=== PATIENT | male | born 1955 | race Caucasian/White ===

== ENCOUNTER → 2020-05-19 | Outpatient (CLI) | payer OTHER | LOC: M.LAB 08:06 | PROVIDERS: ATTEND Internal Medicine Gastroenterology | DX: Z01.812 Encounter for preprocedural laboratory examination (principal); Z11.59 Encounter for screening for other viral diseases; Z12.11 Encounter for screening for malignant neoplasm of colon ==

== ENCOUNTER 2021-05-12 10:52 | Observation (INO) | payer OTHER ==
[~2021-05-12] VITALS: Ht 175.3 cm; Wt 79.4 kg
[2021-05-12 10:59] VITALS: BP 149/110; BP 194/112
[2021-05-12] MEDS ORDERED: AMARYL4 MG PO (11:01)
[2021-05-12] MEDS ORDERED: METFORMIN HCL500 M3 PO (11:01)
[2021-05-12] MEDS ORDERED: LISINOPRIL20 MG PO (11:01)
[2021-05-12 11:33] LABS: ABSOLUTE EOSINOPHILS 0.2 thou/uL (0.0-0.7); ABSOLUTE MONOCYTES 0.5 thou/uL (0.0-1.2); ABSOLUTE NEUTROPHILS 2.7 thou/uL (1.6-8.1); BASOPHILS 0.8 %; EOSINOPHILS 3.2 %; HEMATOCRIT 46.6 % (42.0-52.0); HEMOGLOBIN 15.8 gm/dL (14.0-18.0); MCH 31.4 pg (26.0-34.0); MCHC 33.9 g/dL (28.0-37.0); MCV 92.6 fL (80.0-100.0); MONOCYTES 9.9 %; MPV 7.2 fl. (7.2-11.1); NUCLEATED RBCS 0 /100WBC; PLATELET COUNT* 278 thou/uL (150-400); POLYS 49.1 %; RBC 5.04 mil/uL (4.50-6.00); RDW-CV 13.6 % (10.5-14.5); WBC 5.4 thou/uL (4.0-11.0)
[2021-05-12 11:43] LABS: CALCIUM 9.4 mg/dL (8.5-10.1); CREATININE 2.3 mg/dL (0.6-1.3); POTASSIUM 4.2 mmol/L (3.5-5.1)
[2021-05-12 11:47] LABS: ALBUMIN 2.7 g/dL (3.4-5.0); TOTAL BILIRUBIN 0.2 mg/dL (<0.1-1.0)
[2021-05-12 14:08] LABS: URINE BILIRUBIN NEGATIVE (Negative); URINE BLOOD 1+ (Negative); URINE CLARITY CLEAR; URINE COLOR YELLOW; URINE GLUCOSE-RANDOM 3+ (Negative); URINE KETONES NEGATIVE (Negative); URINE LEUKOCYTES-REFLEX NEGATIVE (Negative); URINE NITRITE-REFLEX NEGATIVE (Negative); URINE PROTEIN 3+ (Negative); URINE SPECIFIC GRAVITY 1.025 (1.005-1.030); URINE UROBILINOGEN 0.2 E.U./dl (0.2-1.0)
[2021-05-12 14:17] LABS: BACTERIA-REFLEX 1-9 Few /HPF (None Seen); MUCUS None Seen strn/LPF (None Seen); SQUAMOUS NONE SEEN /LPF (0-3); URINE RBC 0-2 Rare /HPF (0-2); URINE WBC-REFLEX None Seen /HPF (0-5)
[2021-05-12 14:18] LABS: CASTS None Seen /LPF (None Seen); CRYSTALS None Seen /LPF (None Seen)
--- NOTE | 2021-05-12 15:48 | EKG ---
[place] [address] ELECTROCARDIOGRAM REPORT Name: HARISH REID Room: [facility]#: [id number] Admission: 05/12/21 Attend Phys: Discharge: Date of : 57 Date of Service: 05/12/21 1128 Report #: [id number] THIS REPORT FOR: //name// [facility] ED Test Date: 2021-05-12 Test Time: 11:28:40 Pat Name: HARISH REID Department: Room: Gender: Deli Department Manager: : [id number] Requested By: Nicci Kearney Order Number: [id number] MD: Alistair Hathaway Measurements Intervals [place] Rate: 90 P: 56 NE: 154 QRS: -10 QRSD: 88 T: 147 QT: 331 QTc: 405 Interpretive Statements Sinus rhythm Borderline T abnormalities, lateral leads No previous ECG available for comparison Electronically Signed On 05-12-2021 15:48:27 CDT by Alistair Hathaway [email or web address] <ELECTRONICALLY SIGNED> By: Alistair Hathaway MD, [facility] 05/12/21 1548 D: [id number] Alistair Hathaway MD, FACC /EPI
[2021-05-12 17:42] VITALS: BP 166/81
--- NOTE | 2021-05-12 18:17 | NUR ---
PT ADMITTED WITH RLQ ABD PAIN. SURGERY CONSULTED. PT ORIENTED TO ROOM. CALL LIGHT WITHIN REACH.
[2021-05-12 20:15] VITALS: BP 161/81
--- NOTE | 2021-05-13 05:28 | NUR ---
PT SLEPT WELL OVERNIGHT. UP INDEP IN ROOM. DENIES NEED FOR PAIN MED THIS SHIFT. HS ACCUCHECK 379, INSULINS GIVEN ORDERED. LAC IVF INFUSING PER PUMP, ABX GIVEN ORDERED. CALL LITE IN EASY REACH, ABLE TO MAKE NEEDS KNOWN.
[2021-05-13 06:08] LABS: CALCIUM 8.3 mg/dL (8.5-10.1); CREATININE 2.3 mg/dL (0.6-1.3); POTASSIUM 4.5 mmol/L (3.5-5.1)
[2021-05-13 06:10] LABS: HEMATOCRIT 37.5 % (42.0-52.0); MCH 30.8 pg (26.0-34.0); MCHC 34.3 g/dL (28.0-37.0); MCV 89.8 fL (80.0-100.0); MPV 7.6 fl. (7.2-11.1); RBC 4.18 mil/uL (4.50-6.00); RDW-CV 13.3 % (10.5-14.5)
[2021-05-13 06:56] LABS: HEMOGLOBIN 12.9 gm/dL (14.0-18.0)
[2021-05-13 07:40] VITALS: BP 132/84
[2021-05-13] MEDS ORDERED: CIPRO500 M1 PO (14:30)
[2021-05-13] MEDS ORDERED: FLAGYL500 M1 PO (14:30)
[2021-05-13 14:49] VITALS: BP 132/84
--- NOTE | 2021-05-13 16:10 | NUR ---
PATIENT DISCHARGED TO HOME. DISCHARGE PAPERS REVIEWED AND SIGNED. PRESCRITPIONS AND INFORMATION SHEETS GIVEN. IV REMOVED. PATIENT DENIES ANY FURTHER NEEDS. PATIENT TAKEN BY WHEELCHAIR TO EXIT. LEFT BY OWN VEHICLE.
[2021-05-13 16:24] VITALS: BP 132/84
[2021-05-14 05:36] LABS: GLYCOHEMOGLOBIN (HGB A1C) 10.6 % (4.8-5.6)
== END 2021-05-13 16:10 | disposition home or self-care (01) ==
LOC: M.ERS 10:52 → M.TBA-ER 14:58 → M.3W 17:35
PROVIDERS: Family Medicine; Physician Assistant; ADMIT Internal Medicine; ATTEND Internal Medicine
DX: K63.89 Other specified diseases of intestine (principal); N17.9 Acute kidney failure, unspecified; E11.65 Type 2 diabetes mellitus with hyperglycemia; Z20.822 Contact with and (suspected) exposure to COVID-19; Z79.84 Long term (current) use of oral hypoglycemic drugs; Z79.899 Other long term (current) drug therapy